=== PATIENT | female | born 1950 | race American Indian/Alaskan Native ===

== ENCOUNTER 2020-06-16 03:55 | Emergency (ER) | payer MEDICARE ==
--- NOTE | 2020-06-16 04:08 | Emergency Department Report ---
Blank Doc - Documentation Documentation: 69-year-old female that presents with heart palpitations. Denies any chest pain or shortness of breath. Patient stated has some dizziness as well. Denies any facial drooping. Denies any unsteady gait. Denies any slurred speech. Denies any weakness. 1- This initial assessment/diagnostic orders/clinical plan/ treatment(s) is/are subject to change based on pt's health status, clinical progression and re- assessment by fellow clinical providers in the ED. Further treatment and workup at subsequent clinical provers discretion. Patient/guardians urged not to elope from ED as their condition may be serious if not clinically assessed and managed. 2-cardiac work-up
--- NOTE | 2020-06-16 04:31 | XRay Report ---
CHEST 2 VIEWS INDICATION / CLINICAL INFORMATION: Chest Pain. Heart beating fast. COMPARISON: None available. FINDINGS: SUPPORT DEVICES: None. HEART / MEDIASTINUM: Heart is mildly enlarged. LUNGS / PLEURA: No significant pulmonary or pleural abnormality. No pneumothorax. ADDITIONAL FINDINGS: No significant additional findings. IMPRESSION: 1. Mild cardiomegaly but no acute pulmonary or pleural findings. Signer Name: Juana Mchugh MD Signed: 06/16/2020 4:26 AM Workstation Name: [id number]
[2020-06-16 04:33] LABS: Basophils # (Auto) 0.1 K/mm3 (0.0-0.1); Basophils % (Auto) 2.1 % (0.0-1.8); Hematocrit 31.9 % (30.3-42.9); Hemoglobin 10.4 gm/dl (10.1-14.3); Lymphocytes # (Auto) 1.9 K/mm3 (1.2-5.4); Mean Corpuscular HGB Conc 33 % (30-34); Mean Corpuscular Volume 78 fl (79-97); Monocytes # (Auto) 0.4 K/mm3 (0.0-0.8); Monocytes % (Auto) 8.9 % (0.0-7.3); Platelet Count 129 K/mm3 (140-440); Red Blood Count 4.08 M/mm3 (3.65-5.03); Red Cell Distribution Width 17.4 % (13.2-15.2)
[2020-06-16 04:41] LABS: INR 1.06 (0.87-1.13)
[2020-06-16 04:42] LABS: Partial Thromboplastin Time 29.3 Sec. (24.2-36.6)
[2020-06-16 04:57] LABS: Alanine Aminotransferase 15 units/L (7-56); Blood Urea Nitrogen 15 mg/dL (7-17); Calcium 9.4 mg/dL (8.4-10.2); Hemolysis Index 6
[2020-06-16 05:02] LABS: BUN/Creatinine Ratio 30
[2020-06-16 05:48] LABS: Bilirubin,Urine NEG (Negative); Blood,Urine NEG (Negative); Color,Urine Yellow (Yellow); Mucus,Urine FEW /HPF; Protein,Urine <15 mg/dL mg/dL (Negative)
--- NOTE | 2020-06-16 06:52 | Emergency Department Report ---
ED Palpitations HPI - General Chief Complaint: Arrhythmia/Palpitations Stated Complaint: HEART BEATING FAST Time Seen by Provider: 06/16/20 03:58 Source: patient Mode of arrival: Ambulatory Limitations: No Limitations - History of Present Illness Initial Comments: 69-year-old female, history of hypertension, diabetes, anemia, presents to ED with palpitations. Patient states it feels as if her heart is racing. Patient states this started yesterday afternoon around 5 or 6 PM. Patient states she still has a sensation currently that her heart is racing. Patient denies any chest pain, shortness of breath, leg pain or swelling. Patient states she has been under lots of stress recently, wonders if her symptoms could be due to anxiety. MD Complaint: "heart racing" -: Last night Context: occured during rest Associated Symptoms: denies other symptoms. denies: chest pain, shortness of breath, near-syncope, nausea/vomiting, diaphoresis - Related Data Allergies Allergy/AdvReac Type Severity Reaction Status Date / Time No Known Allergies Allergy Verified 06/16/20 04:03 ED Review of Systems ROS: Stated complaint: HEART BEATING FAST Other details as noted in HPI Comment: All other systems reviewed and negative Constitutional: denies: chills, fever Respiratory: denies: shortness of breath Cardiovascular: palpitations. denies: chest pain Gastrointestinal: denies: abdominal pain, nausea, vomiting Musculoskeletal: other (Denies leg pain or swelling) ED Past Medical Hx - Past Medical History Previous Medical History?: Yes Hx Hypertension: Yes Hx Diabetes: Yes Hx Deep Vein Thrombosis: Yes Additional medical history: Gallstones - Surgical History Past Surgical History?: Yes Additional Surgical History: x2. left knee - Social History Smoking Status: Never Smoker Substance Use Type: None ED Physical Exam - General Limitations: No Limitations General appearance: alert, in no apparent distress - Head Head exam: Present: atraumatic, normocephalic - Eye Eye exam: Present: normal appearance, EOMI - ENT ENT exam: Present: mucous membranes moist - Neck Neck exam: Present: normal inspection - Respiratory Respiratory exam: Present: normal lung sounds bilaterally. Absent: respiratory distress - Cardiovascular Cardiovascular Exam: Present: regular rate, normal rhythm - GI/Abdominal GI/Abdominal exam: Present: soft. Absent: distended, tenderness - Extremities Exam Extremities exam: Present: normal inspection - Neurological Exam Neurological exam: Present: alert, oriented X3 - Psychiatric Psychiatric exam: Present: normal affect, normal mood - Skin Skin exam: Present: warm, dry, intact, normal color ED Course Vital Signs 06/16/20 06/16/20 06/16/20 04:06 04:08 06:30 Temperature 98.8 F Pulse Rate 85 82 Respiratory 16 18 Rate Blood Pressure 186/88 Blood Pressure 161/62 [Right] O2 Sat by Pulse 100 100 Oximetry ED Medical Decision Making - Lab Data Result diagrams: 06/16/20 04:08 06/16/20 04:08 - EKG Data -: EKG Interpreted by [facility] EKG shows normal: sinus rhythm, axis, QRS complexes, ST-T waves Rate: normal - EKG Data Interpretation: no acute changes, other (prolonged QT, PVCs present) - Radiology Data Radiology results: report reviewed, image reviewed Critical care attestation.: If time is entered above; I have spent that time in minutes in the direct care of this critically ill patient, excluding procedure time. ED Disposition Clinical Impression: Palpitations Disposition: DC-01 TO HOME OR SELFCARE Is pt being admited?: No Condition: Stable Instructions: Palpitations, [id number] Referrals: PRIMARY CARE, [Primary Care Provider] - 3-5 Days TIANNA MOULTON MD [Staff Physician] - 3-5 Days Time of Disposition: 06:54
[2020-06-16 07:22] VITALS: BP 152/49
== END 2020-06-16 07:15 | disposition home or self-care (01) ==
LOC: ED 03:55
DX: R00.2 Palpitations (principal); I10 Essential (primary) hypertension; E11.9 Type 2 diabetes mellitus without complications
CPT/HCPCS: 36415; 71046; 80053; 81001; 83735; 84484; 85025; 85610; 85730; 93005; 99283

== ENCOUNTER 2021-03-09 12:14 | Outpatient (CLI) | payer MEDICARE ==
--- NOTE | 2021-03-09 14:47 | Vascular Lab Report ---
DUPLEX DOPPLER LOWER EXTREMITY VEINS, BILATERAL INDICATION: SWELLING/INFLAMMATION. TECHNIQUE: Duplex doppler imaging was performed through the veins of both lower extremities using ve nous compression and other maneuvers. COMPARISON: No relevant prior imaging study available. FINDINGS: Right Common femoral vein: Negative. Right Superficial femoral vein: Negative. Right Popliteal vein: Negative. Right Calf veins: Negative. Left Common femoral vein: Negative. Left Superficial femoral vein: Negative. Left Popliteal vein: Negative. Left Calf veins: Negative. Additional findings: There is moderate diffuse bilateral subcutaneous edema. IMPRESSION: No sonographic evidence for DVT in either lower extremity. Signer Name: Trey Rasmussen Jr, MD Signed: 03/09/2021 2:43 PM Workstation Name: [id number]
== END 2021-03-09 12:15 | disposition home or self-care (01) ==
LOC: VAS 12:14
PROVIDERS: ATTEND Podiatrist Foot & Ankle Surgery
DX: M79.89 Other specified soft tissue disorders (principal); M79.662 Pain in left lower leg
CPT/HCPCS: 93970

== ENCOUNTER 2021-06-29 19:38 | Emergency (ER) | payer MEDICARE ==
--- NOTE | 2021-06-30 01:40 | XRay Report ---
"Bilateral knee radiographs, 3 views of each knee. HISTORY: Fall COMPARISON: None FINDINGS: Right knee: Moderate osteoarthritis of the right knee, preferentially involving the medial compartmen t. There is mild lateral tibial translation. No acute fracture or malalignment. Nonspecific small gregory nt effusion. Left knee: Moderate tricompartmental osteoarthritis of the left knee, preferentially involving the me dial compartment, with mild lateral tibial translation. No acute fracture or malalignment. Nonspecifi c small joint effusion. IMPRESSION: Moderate bilateral knee osteoarthritis with nonspecific small joint effusions. No acute o sseous findings. Signer Name: Jose Eduardo Hernandez MD Signed: 06/30/2021 1:36 AM Workstation Name: [id number]"
[2021-06-30 02:02] LABS: Hematocrit 33.1 % (30.3-42.9); Hemoglobin 10.4 gm/dl (10.1-14.3); Mean Corpuscular HGB Conc 32 % (30-34); Mean Corpuscular Volume 80 fl (79-97); Platelet Count 209 K/mm3 (140-440); Red Blood Count 4.15 M/mm3 (3.65-5.03); Red Cell Distribution Width 18.2 % (13.2-15.2)
[2021-06-30 02:19] LABS: Alanine Aminotransferase 10 units/L (7-56); Blood Urea Nitrogen 15 mg/dL (7-17); Calcium 8.9 mg/dL (8.4-10.2); Hemolysis Index 1
[2021-06-30 02:23] LABS: BUN/Creatinine Ratio 30
[2021-06-30 03:12] LABS: Basophils % (Manual) 0 % (0.0-1.8); Eosinophils % (Manual) 0 % (0.0-4.3); Hypochromasia 1+; Total Cells Counted 100
[2021-06-30 03:13] LABS: Ovalocytes Few; Platelet Estimate Consistent w Auto
[2021-06-30] MEDS ORDERED: IBUPROFEN 600 MG TAB PO ONE (06:38)
--- NOTE | 2021-06-30 06:39 | Emergency Department Report ---
ED Fall HPI - General Chief Complaint: Weakness Stated Complaint: FELL KNEE PAIN Source: patient Mode of arrival: Wheelchair - Related Data Previous Rx's Medication Instructions Recorded Last Taken Type Naproxen [Naprosyn] 500 mg PO BID PRN #20 tablet 06/30/21 Unknown Rx Allergies Allergy/AdvReac Type Severity Reaction Status Date / Time No Known Allergies Allergy Verified 06/16/20 04:03 ED Review of Systems ROS: Stated complaint: FELL KNEE PAIN Other details as noted in HPI Comment: All other systems reviewed and negative ED Past Medical Hx - Past Medical History Previous Medical History?: Yes Hx Hypertension: Yes Hx Diabetes: Yes Hx Deep Vein Thrombosis: Yes Additional medical history: Gallstones, hld - Surgical History Past Surgical History?: Yes Additional Surgical History: x2. left knee - Family History Family history: no significant - Social History Smoking Status: Never Smoker Substance Use Type: None - Medications Home Medications: Home Medications Medication Instructions Recorded Confirmed Last Taken Type Naproxen [Naprosyn] 500 mg PO BID PRN #20 tablet 06/30/21 Unknown Rx ED Physical Exam - General Limitations: No Limitations General appearance: alert, in no apparent distress - Head Head exam: Present: atraumatic, normocephalic - Eye Eye exam: Present: normal appearance - ENT ENT exam: Present: mucous membranes moist - Neck Neck exam: Present: normal inspection - Respiratory Respiratory exam: Present: normal lung sounds bilaterally. Absent: respiratory distress - Cardiovascular Cardiovascular Exam: Present: regular rate, normal rhythm. Absent: systolic murmur, diastolic murmur, rubs, gallop - GI/Abdominal GI/Abdominal exam: Present: soft, normal bowel sounds - Extremities Exam Extremities exam: Present: normal inspection - Back Exam Back exam: Present: normal inspection - Neurological Exam Neurological exam: Present: alert, oriented X3 - Psychiatric Psychiatric exam: Present: normal affect, normal mood - Skin Skin exam: Present: warm, dry, intact, normal color. Absent: rash ED Course Vital Signs 06/30/21 01:13 Temperature 98.7 F Pulse Rate 90 Respiratory 16 Rate Blood Pressure 167/60 [Right] O2 Sat by Pulse 98 Oximetry ED Medical Decision Making - Lab Data Result diagrams: 06/30/21 01:33 06/30/21 01:33 - Radiology Data Radiology results: report reviewed, image reviewed no fx - Medical Decision Making Vital Signs 06/30/21 01:13 Temperature 98.7 F Pulse Rate 90 Respiratory 16 Rate Blood Pressure 167/60 [Right] O2 Sat by Pulse 98 Oximetry Lab Results 06/30/21 06/30/21 Range/Units 01:33 01:33 WBC 4.1 L (4.5-11.0) K/mm3 RBC 4.15 (3.65-5.03) M/mm3 Hgb 10.4 (10.1-14.3) gm/dl Hct 33.1 (30.3-42.9) % MCV 80 (79-97) fl MCH 25 L (28-32) pg MCHC 32 (30-34) % RDW 18.2 H (13.2-15.2) % Plt Count 209 (140-440) K/mm3 Add Manual Diff Complete Total Counted 100 Seg Neuts % (Manual) 43.0 (40.0-70.0) % Band Neutrophils % 0 % Lymphocytes % (Manual) 51.0 H (13.4-35.0) % Reactive Lymphs % (Man) 0 % Monocytes % (Manual) 6.0 (0.0-7.3) % Eosinophils % (Manual) 0 (0.0-4.3) % Basophils % (Manual) 0 (0.0-1.8) % Metamyelocytes % 0 % Myelocytes % 0 % Promyelocytes % 0 % Blast Cells % 0 % Nucleated RBC % Not Reportable Seg Neutrophils # Man 1.8 (1.8-7.7) K/mm3 Band Neutrophils # 0.0 K/mm3 Lymphocytes # (Manual) 2.1 (1.2-5.4) K/mm3 Abs React Lymphs (Man) 0.0 K/mm3 Monocytes # (Manual) 0.2 (0.0-0.8) K/mm3 Eosinophils # (Manual) 0.0 (0.0-0.4) K/mm3 Basophils # (Manual) 0.0 (0.0-0.1) K/mm3 Metamyelocytes # 0.0 K/mm3 Myelocytes # 0.0 K/mm3 Promyelocytes # 0.0 K/mm3 Blast Cells # 0.0 K/mm3 WBC Morphology Not Reportable Hypersegmented Neuts Not Reportable Hyposegmented Neuts Not Reportable Hypogranular Neuts Not Reportable Smudge Cells Not Reportable Toxic Granulation Not Reportable Toxic Vacuolation Not Reportable Dohle Bodies Not Reportable Pelger-Huet Anomaly Not Reportable Charity Rods Not Reportable Platelet Estimate Consistent w auto Clumped Platelets Not Reportable Plt Clumps, EDTA Not Reportable Large Platelets Not Reportable Giant Platelets Not Reportable Platelet Satelliting Not Reportable Plt Morphology Comment Not Reportable RBC Morphology Not Reportable Dimorphic RBCs Not Reportable Polychromasia Not Reportable Hypochromasia 1+ Poikilocytosis Not Reportable Anisocytosis Not Reportable Microcytosis Not Reportable Macrocytosis Not Reportable Spherocytes Not Reportable Pappenheimer Bodies Not Reportable Sickle Cells Not Reportable Target Cells Not Reportable Tear Drop Cells Not Reportable Ovalocytes Few Helmet Cells Not Reportable Garnica-[place] Bodies Not Reportable [place] Rings Not Reportable [place] Cells Not Reportable Bite Cells Not Reportable Crenated Cell Not Reportable Elliptocytes Not Reportable Acanthocytes (Spur) Not Reportable Rouleaux Not Reportable Hemoglobin C Crystals Not Reportable Schistocytes Not Reportable Malaria parasites Not Reportable Hermann Bodies Not Reportable Hem Pathologist Commnt No Sodium 138 (137-145) mmol/L Potassium 3.9 (3.6-5.0) mmol/L Chloride 99.0 (98-107) mmol/L Carbon Dioxide 27 (22-30) mmol/L Anion Gap 16 mmol/L BUN 15 (7-17) mg/dL Creatinine 0.5 L (0.6-1.2) mg/dL Estimated GFR > 60 ml/min BUN/Creatinine Ratio 30 % Glucose 155 H (65-100) mg/dL Calcium 8.9 (8.4-10.2) mg/dL Total Bilirubin 0.60 (0.1-1.2) mg/dL AST 20 (5-40) units/L ALT 10 (7-56) units/L Alkaline Phosphatase 126 (35-129) units/L Total Protein 6.5 (6.3-8.2) g/dL Albumin 4.0 (3.9-5) g/dL Albumin/Globulin Ratio 1.6 % - Differential Diagnosis ro fx Critical care attestation.: If time is entered above; I have spent that time in minutes in the direct care of this critically ill patient, excluding procedure time. ED Disposition Clinical Impression: Fall, Knee pain, Arthritis Disposition: HOME / SELF CARE / HOMELESS Is pt being admited?: No Does the pt Need Aspirin: No Condition: Stable Additional Instructions: med as ordered today take with food crutches for assistance with gait until you see pcp/Dr hart You may need a walker follow up with Dr Hart- ortho referral below Prescriptions: Naproxen [Naprosyn] 500 mg PO BID PRN #20 tablet PRN Reason: Pain Referrals: TING HART MD [Staff Physician] - 3-5 Days Time of Disposition: 06:38
[2021-06-30 07:25] VITALS: BP 160/70
== END 2021-06-30 07:25 | disposition home or self-care (01) ==
LOC: ED 19:38
DX: M25.569 Pain in unspecified knee (principal); M17.10 Unilateral primary osteoarthritis, unspecified knee; I10 Essential (primary) hypertension; E11.8 Type 2 diabetes mellitus with unspecified complications; W19.XXXA Unspecified fall, initial encounter; Y93.89 Activity, other specified; Y92.89 Other specified places as the place of occurrence of the external cause; Y99.8 Other external cause status
CPT/HCPCS: 36415; 80053; 85007; 85025; 99284

== ENCOUNTER 2021-11-30 19:03 | Emergency (ER) | payer MEDICARE ==
[2021-11-30 20:10] LABS: Basophils % (Auto) 0.5 % (0.0-1.8); Hematocrit 29.1 % (30.3-42.9); Hemoglobin 9.6 gm/dl (10.1-14.3); Lymphocytes # (Auto) 1.2 K/mm3 (1.2-5.4); Lymphocytes % (Auto) 46.5 % (13.4-35.0); Mean Corpuscular HGB Conc 33 % (30-34); Mean Corpuscular Volume 82 fl (79-97); Monocytes # (Auto) 0.1 K/mm3 (0.0-0.8); Red Blood Count 3.56 M/mm3 (3.65-5.03); Red Cell Distribution Width 17.8 % (13.2-15.2)
[2021-11-30 20:13] LABS: Platelet Count 73 K/mm3 (140-440)
[2021-11-30 20:30] LABS: Alanine Aminotransferase 8 units/L (7-56); Albumin 3.4 g/dL (3.9-5); Blood Urea Nitrogen 10 mg/dL (7-17); Calcium 8.8 mg/dL (8.4-10.2); Hemolysis Index 0
[2021-11-30 20:41] LABS: BUN/Creatinine Ratio 17
[2021-11-30 21:38] LABS: INR 1.05 (0.87-1.13)
[2021-11-30 21:39] LABS: Partial Thromboplastin Time 33.7 Sec. (24.2-36.6)
--- NOTE | 2021-12-01 08:49 | Emergency Department Report ---
HPI - General Chief Complaint: Weakness Time Seen by Provider: 12/01/21 08:29 - HPI HPI: Room 7 Patient is a 71-year-old female present with a chief complaint of anemia. Patient states she had blood drawn 10 days ago. Patient states she received a phone call from her primary physician Dr. Mackay yesterday stating that her hemoglobin was 3.8 and that she should come to the emergency department. Patient denies hematemesis and states her stool has been green ED Past Medical Hx - Past Medical History Hx Hypertension: Yes Hx Diabetes: Yes Hx Deep Vein Thrombosis: Yes Hx Renal Disease: No Additional medical history: Gallstones, hld - Surgical History Additional Surgical History: x2. left knee - Social History Smoking Status: Never Smoker Substance Use Type: None - Medications Home Medications: Home Medications Medication Instructions Recorded Confirmed Last Taken Type Ascorbic Acid [Vitamin C] 1,000 mg PO QDAY 11/11/21 11/11/21 Unknown History Cholecalciferol Vit D3 [Vitamin D3 1,000 unit PO QDAY 11/11/21 11/11/21 Unknown History 1,000 UNIT TAB] Cyanocobalamin (Vitamin B-12) 1,000 mcg IJ QMONTH 11/11/21 11/11/21 Unknown History [Dodex] Ferrous Sulfate [Iron 325 MG] 325 mg PO QDAY 11/11/21 11/11/21 Unknown History Insulin NPH Hum/Reg Insulin Hm 10 unit SQ QPM 11/11/21 11/11/21 Unknown History [Novolin 70-30 100 Unit/ml Vial] Insulin NPH Hum/Reg Insulin Hm 20 unit SQ QAM 11/11/21 11/11/21 Unknown History [Novolin 70-30 100 Unit/ml Vial] Rosuvastatin Calcium 20 mg PO QDAY 11/11/21 11/11/21 Unknown History Apixaban [Eliquis] 2.5 mg PO Q12HR 30 Days #60 tablet 11/13/21 Unknown Rx Furosemide [Lasix TAB] 20 mg PO QDAY 30 Days #30 tablet 11/13/21 Unknown Rx Spironolactone [Aldactone] 50 mg PO QDAY 30 Days #30 tablet 11/13/21 Unknown Rx propranoloL [Inderal] 10 mg PO Q12HR 60 Days #60 tablet 11/13/21 Unknown Rx ED Review of Systems ROS: Stated complaint: NEED BLOOD TRANSFUSION Other details as noted in HPI Physical Exam - Physical Exam Vital Signs: Vital Signs 11/30/21 12/01/21 19:30 08:37 Temperature 97.9 F 97.8 F Pulse Rate 77 78 Respiratory 18 20 Rate Blood Pressure 138/58 Blood Pressure 154/49 138/58 [Right] O2 Sat by Pulse 100 99 Oximetry ED Course Vital Signs 11/30/21 12/01/21 19:30 08:37 Temperature 97.9 F 97.8 F Pulse Rate 77 78 Respiratory 18 20 Rate Blood Pressure 138/58 Blood Pressure 154/49 138/58 [Right] O2 Sat by Pulse 100 99 Oximetry - Consultations Consultation #1: 12/01/21 08:48 Dr. Jacobs paged 12/01/21 09:59 Case discussed with patient's primary physician Dr. 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 that the patient should follow-up in his office and he will refer her ED Medical Decision Making - Lab Data Result diagrams: 11/30/21 19:47 11/30/21 19:47 Laboratory Tests 11/30/21 11/30/21 11/30/21 19:47 19:47 20:49 WBC 2.5 L RBC 3.56 L Hgb 9.6 L Hct 29.1 L MCV 82 MCH 27 L MCHC 33 RDW 17.8 H Plt Count 73 L Lymph % (Auto) 46.5 H [place] % (Auto) 6.0 Eos % (Auto) 0.0 Baso % (Auto) 0.5 Lymph # (Auto) 1.2 [place] # (Auto) 0.1 Eos # (Auto) 0.0 Baso # (Auto) 0.0 Seg Neutrophils % 47.0 Seg Neutrophils # 1.2 L PT INR APTT Sodium 131 L Potassium 4.4 Chloride 94.9 L Carbon Dioxide 30 Anion Gap 11 BUN 10 Creatinine 0.6 Estimated GFR > 60 BUN/Creatinine Ratio 17 Glucose 248 H Calcium 8.8 Total Bilirubin 0.50 AST 17 ALT 8 Alkaline Phosphatase 103 Total Protein 6.1 L Albumin 3.4 L Albumin/Globulin Ratio 1.3 Blood Type B POSITIVE Antibody Screen Positive 11/30/21 20:49 WBC RBC Hgb Hct MCV MCH MCHC RDW Plt Count Lymph % (Auto) [place] % (Auto) Eos % (Auto) Baso % (Auto) Lymph # (Auto) [place] # (Auto) Eos # (Auto) Baso # (Auto) Seg Neutrophils % Seg Neutrophils # PT 14.9 INR 1.05 APTT 33.7 Sodium Potassium Chloride Carbon Dioxide Anion Gap BUN Creatinine Estimated GFR BUN/Creatinine Ratio Glucose Calcium Total Bilirubin AST ALT Alkaline Phosphatase Total Protein Albumin Albumin/Globulin Ratio Blood Type Antibody Screen Critical care attestation.: If time is entered above; I have spent that time in minutes in the direct care of this critically ill patient, excluding procedure time. ED Disposition Clinical Impression: Pancytopenia Disposition: 01 HOME / SELF CARE / HOMELESS Is pt being admited?: No Does the pt Need Aspirin: No Condition: Stable Additional Instructions: Return to the emergency department should you develop worsening symptoms, inability to tolerate food or liquids, high fever or any other concerns Referrals: DERICK JACOBS MD [Staff Physician] - 3-5 Days Time of Disposition: 10:00
--- NOTE | 2021-12-01 09:05 | Electrocardiograph Report ---
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
[2021-12-01 10:54] VITALS: BP 130/70
== END 2021-12-01 10:52 | disposition home or self-care (01) ==
LOC: ED 19:03
DX: D61.818 Other pancytopenia (principal); I10 Essential (primary) hypertension; E11.9 Type 2 diabetes mellitus without complications
CPT/HCPCS: 36415; 80053; 85025; 85610; 85730; 86850; 86870; 86900; 86901; 93005; 99283